=== PATIENT | male | born 1960 | race Caucasian/White ===

== ENCOUNTER 2021-03-03 09:29 | Outpatient (REF) | payer MEDICAID, SELFPAY | END 2021-03-03 09:30 | disposition home or self-care (01) | LOC: HO.BBR 09:29 | PROVIDERS: Visit Provider Internal Medicine Hematology | DX: D45 Polycythemia vera (principal) | CPT/HCPCS: 36415; 85014; 85018; 99195 ==

== ENCOUNTER 2021-03-17 09:55 | Outpatient (REF) | payer MEDICAID, SELFPAY | END 2021-03-17 09:56 | disposition home or self-care (01) | LOC: HO.BBR 09:55 | PROVIDERS: Visit Provider Internal Medicine Hematology | DX: D45 Polycythemia vera (principal) | CPT/HCPCS: 85014; 85018; 99195 ==

== ENCOUNTER 2021-04-01 09:46 | Outpatient (REF) | payer MEDICAID, SELFPAY | END 2021-04-01 09:47 | disposition home or self-care (01) | LOC: HO.BBR 09:46 | PROVIDERS: Visit Provider Internal Medicine Hematology | DX: D45 Polycythemia vera (principal) | CPT/HCPCS: 36415; 85018; 99195 ==

== ENCOUNTER 2021-04-16 08:47 | Outpatient (REF) | payer MEDICAID, SELFPAY | END 2021-04-16 08:48 | disposition home or self-care (01) | LOC: HO.BBR 08:47 | PROVIDERS: Visit Provider Student in an Organized Health Care Education/Training Program | DX: D45 Polycythemia vera (principal) | CPT/HCPCS: 85014; 85018; 99195 ==

== ENCOUNTER 2021-04-30 08:24 | Outpatient (REF) | payer MEDICAID, SELFPAY | END 2021-04-30 08:25 | disposition home or self-care (01) | LOC: HO.BBR 08:24 | PROVIDERS: PCP Internal Medicine; Visit Provider Internal Medicine Hematology | DX: D45 Polycythemia vera (principal) | CPT/HCPCS: 85014; 85018; 99195 ==

== ENCOUNTER 2021-05-14 10:47 | Outpatient (REF) | payer MEDICAID, SELFPAY | END 2021-05-14 10:48 | disposition home or self-care (01) | LOC: HO.BBR 10:47 | PROVIDERS: PCP Internal Medicine; Visit Provider Internal Medicine Hematology | DX: D45 Polycythemia vera (principal) | CPT/HCPCS: 85014; 85018; 99195 ==

== ENCOUNTER 2021-05-28 08:51 | Outpatient (REF) | payer MEDICAID, SELFPAY | END 2021-05-28 08:52 | disposition home or self-care (01) | LOC: HO.BBR 08:51 | PROVIDERS: PCP Internal Medicine; Visit Provider Internal Medicine Hematology | DX: D45 Polycythemia vera (principal) | CPT/HCPCS: 85014; 85018; 99195 ==

== ENCOUNTER 2021-06-11 08:46 | Outpatient (REF) | payer MEDICAID, SELFPAY | END 2021-06-11 08:47 | disposition home or self-care (01) | LOC: HO.BBR 08:46 | PROVIDERS: PCP Student in an Organized Health Care Education/Training Program; Visit Provider Internal Medicine Hematology | DX: D45 Polycythemia vera (principal) | CPT/HCPCS: 85014; 85018; 99195 ==

== ENCOUNTER 2021-07-15 10:34 | Outpatient (REF) | payer MEDICAID, SELFPAY | END 2021-07-15 10:35 | disposition home or self-care (01) | LOC: HO.BBR 10:34 | PROVIDERS: Visit Provider Internal Medicine Hematology | DX: D45 Polycythemia vera (principal) | CPT/HCPCS: 85014; 85018 ==

== ENCOUNTER 2021-08-20 10:01 | Outpatient (REF) | payer MEDICAID, SELFPAY | END 2021-08-20 10:02 | disposition home or self-care (01) | LOC: HO.BBR 10:01 | PROVIDERS: Visit Provider Student in an Organized Health Care Education/Training Program | DX: D45 Polycythemia vera (principal) | CPT/HCPCS: 85014; 85018 ==